=== PATIENT | male | born 1950 | race Caucasian/White ===

== ENCOUNTER → 2017-06-22 | Outpatient (CLI) | payer OTHER ==
[~2017-06-22] MED LIST: ALFU10TA2 PO; B-CO1CAP17 PO; GLIP5TAB11 PO; LINA1TAB PO; LSN25 PO; MAGN400T6 PO; NRN800 PO; OXYC-57 PO; SIMV40TA2 PO
--- NOTE | 2017-06-22 10:38 | DIAGNOSTIC IMAGING REPORT ---
L-SPINE FLEX/EXT BENDING MIN 6 HISTORY: 66 years-old Male LUMBAGO chronic low back pain COMPARISON: None available TECHNIQUE: 7 radiographs of the lumbar spine obtained in neutral, flexion and extension views FINDINGS: There is approximately 30 degrees levoscoliosis of the lumbar spine. Evaluation is limited secondary to prominent bowel gas. There is 3 mm retrolisthesis L3 on L4 which is unchanged with neutral, flexion and extension. Apparent anterolisthesis of S1 on S2 is likely accentuated by positioning with levoscoliosis. This appears to be unchanged throughout the study. Moderate to severe multilevel intervertebral disc space narrowing with endplate spurring and facet arthrosis. IMPRESSION: 1. Levoscoliosis of the lumbar spine. 2. Moderate to severe multilevel intervertebral disc space narrowing, spondylitic spurring and facet arthropathy. 3. 3 mm retrolisthesis L3 on L4 is unchanged throughout the study. No definite evidence of instability. The above report was generated using voice recognition software. It may contain grammatical, syntax or spelling errors. Electronically signed by: Bhupendra Tay M.D. 06/22/2017 10:37 AM Dictated Date/Time: 06/22/2017 10:29 AM
== END | disposition home or self-care (01) ==
LOC: C.RADBC 10:08
PROVIDERS: ATTEND Physician Assistant
DX: M96.1 Postlaminectomy syndrome, not elsewhere classified (principal); M41.86 Other forms of scoliosis, lumbar region; M48.061 Spinal stenosis, lumbar region without neurogenic claudication